=== PATIENT | female | born 1985 | race Hispanic/Latino ===

== ENCOUNTER 2016-07-22 22:30 | Emergency (ER) | payer OTHER ==
[2016-07-22 22:46] VITALS: RESP 16; TEMP 98.2; O2SAT 100
--- NOTE | 2016-07-22 23:07 | ED PDOC ---
Lower Extremity Pain/Injury Time Seen by Provider: 07/22/16 23:06 Chief Complaint (Nursing): Abnormal Skin Integrity Chief Complaint (Provider): foot laceration History Per: Patient Additional Complaint(s): Patient presents to ED with wound to left foot s/p walking and stepping on glass. Patient states that a piece of glass punctured through her shoe into her foot. Patient is not sure of last tetanus. She denies any FB sensation to foot. Past Medical History Reviewed: Historical Data, Nursing Documentation, Vital Signs Vital Signs: Last Vital Signs Temp 98.2 F 07/22/16 22:43 Pulse 102 H 07/22/16 22:43 Resp 16 07/22/16 22:43 BP 136/77 07/22/16 22:43 Pulse Ox 100 07/22/16 22:43 - Medical History PMH: No Chronic Diseases - Surgical History Surgical History: No Surg Hx - Family History Family History: States: No Known Family Hx - Living Arrangements Living Arrangements: With Family - Social History Current smoker - smoking cessation education provided: No Alcohol: Social Drugs: Denies - Immunization History Hx Tetanus Toxoid Vaccination: No (not sure of last tetanus) - Allergies Allergies/Adverse Reactions: Allergies Allergy/AdvReac Type Severity Reaction Status Date / Time No Known Allergies Allergy Verified 07/22/16 22:43 Wells Criteria for PE - Wells Criteria for Pulmonary Embolism Clinical Signs and Symptoms of DVT: No P.E is #1 Diagnosis, or Equally Likely: No Heart Rate >100: No Immobilization at least 3 days;Surgery previous 4 weeks: No Previous, objectively diagnosed PE or DVT: No Hemoptysis: No Malignancy w/treatment within 6 months, or palliative: No Total Score: 0 Review of Systems ROS Statement: Except As Marked, All Systems Reviewed And Found Negative Musculoskeletal: Positive for: Other (puncture wound left foot) Physical Exam - Reviewed Nursing Documentation Reviewed: Yes Vital Signs Reviewed: Yes - Physical Exam Appears: Positive for: Well, Non-toxic, No Acute Distress Cardiovascular/Chest: Positive for: Regular Rate, Rhythm Respiratory: Positive for: Normal Breath Sounds Extremity: Positive for: Other (Superficial puncture wound plantar aspect of left foot, no retained FB in wound, no active bleeding, normal distal sensation) Neurologic/Psych: Positive for: Alert, Oriented - Laboratory Results Urine POC: Negative (patient declined test, states she is certain she is not ) - ECG O2 Sat by Pulse Oximetry: 100 Pulse Ox Interpretation: Normal Medical Decision Making Medical Decision Making: Impression: puncture wound to foot Plan: Tetanus booster Wound care Procedure Note: Wound was cleansed with normal saline and Betadine, bacitracin and bandage applied. Neurovascular intact status post placement. Patient was given wound care instructions, advised Tylenol for pain as needed. Patient was referred to podiatry clinic for follow-up. Disposition - Clinical Impression Clinical Impression: Puncture wound of foot, Requires a booster tetanus - Patient ED Disposition Is Patient to be Admitted: No Counseled Patient/Family Regarding: Diagnosis, Need For Followup - Disposition Referrals: Podiatry Clinic [Outside] Disposition: Routine/Home Disposition Time: 00:08 Condition: STABLE Additional Instructions: Keep wound clean and dry. Tylenol for pain as needed. Follow up in 2-3 days with podiatry clinic. Instructions: Diphtheria/Acellular Pertussis/Tetanus Booster Vaccine (Tdap) ( Injection), Puncture Wound (ED)
[2016-07-22] MEDS ORDERED: TDAP Vaccine 0.5 mL Syr IM ONE (23:45)
[2016-07-23 00:27] VITALS: BP 125/80; PULSE 75
== END 2016-07-23 00:27 | disposition home or self-care (01) ==
LOC: H.ER 22:30
DX: S91.332A Puncture wound without foreign body, left foot, initial encounter (principal); W25.XXXA Contact with sharp glass, initial encounter; Y93.01 Activity, walking, marching and hiking